=== PATIENT | male | born 1955 | race Hispanic/Latino ===

== ENCOUNTER 2019-01-28 06:46 | Day surgery (SDC) | payer OTHER ==
[2019-01-27 09:48] VITALS: BMI 38.9
--- NOTE | 2019-01-28 13:43 | OP ---
DATE OF PROCEDURE: 01/28/2019 PREPROCEDURE DIAGNOSES: Personal history of colon polyps. Family history of colon cancer in father. PROCEDURES: Colonoscopy and polypectomy. ANESTHESIA: TIVA. RECOMMENDATIONS: Repeat colonoscopy in 5 years. POSTPROCEDURE DIAGNOSES: Three small polyps, one in the ascending and two in the descending. DESCRIPTION OF PROCEDURE: The patient was informed of the risks, benefits, possible complications of endoscopy including perforation, reaction to medication, and aspiration. Informed consent was obtained. The patient was brought to the endoscopy suite, where he was sedated in gradual fashion. Once he was comfortable, rectal exam was performed. The endoscope was advanced through the anal canal through the colon to the cecum, which was identified by ileocecal valve and appendiceal orifice. The scope was then slowly removed. The prep was good. There was a 4 mm polyp, sessile in the ascending colon, removed by hot snare polypectomy and 2 diminutive polyps in the descending colon, removed by hot snare polypectomy. Retroflexed views in the rectum were normal. There were a few small diverticula. Conclusion of procedure, the scope was removed, the patient tolerated the procedure well. He did have some mild laryngospasm, which was treated by anesthesia, see their records for details, but had no significant desaturation. The patient tolerated the procedure well. There were no complications. Job ID: [id number]
== END 2019-01-28 11:15 | disposition home or self-care (01) ==
LOC: SDC 06:46
PROVIDERS: ATTEND Internal Medicine Gastroenterology
PROC: 0DBM8ZX Excision of Descending Colon, Via Natural or Artificial Opening Endoscopic, Diagnostic (ICD-10-PCS; principal; 2019-01-28)
PROC: 0DBK8ZX Excision of Ascending Colon, Via Natural or Artificial Opening Endoscopic, Diagnostic (ICD-10-PCS; principal; 2019-01-28)
DX: Z12.11 Encounter for screening for malignant neoplasm of colon (principal); K63.5 Polyp of colon; K57.30 Diverticulosis of large intestine without perforation or abscess without bleeding; J44.9 Chronic obstructive pulmonary disease, unspecified; I49.5 Sick sinus syndrome; Z86.010 Personal history of colon polyps; Z87.891 Personal history of nicotine dependence; Z79.82 Long term (current) use of aspirin; Z79.899 Other long term (current) drug therapy; Z80.0 Family history of malignant neoplasm of digestive organs; Z91.048 Other nonmedicinal substance allergy status; Z95.0 Presence of cardiac pacemaker
CPT/HCPCS: 88305

== ENCOUNTER 2019-07-26 02:00 | Observation (INO) | payer OTHER ==
[2019-07-26 02:39] LABS: #Basophils 0.1 thou/uL (0.0-0.2); #Eosinphils 0.2 thou/uL (0.0-0.7); #Lymphocytes 1.9 thou/uL (1.20-3.40); #Monocytes 0.5 thou/uL (0.11-0.59); #Neutrophils 5.9 thou/uL (1.40-6.50); %Eosinophils 2.5 % (0.0-10.0); %Monocytes 5.8 % (0.0-10.0); %Neutrophils 68.7 % (42.0-75.0); Hemoglobin 15.2 g/dL (14.0-18.0); Mean Corpuscular HGB CONC 33.8 g/dL (32.0-36.0); Mean Corpuscular Volume 91.7 fL (78.0-98.0); Mean Platelet Volume 6.8 fL (7.4-10.4); Platelet Count 202 thou/uL (130-400); RBC Distribution Width 11.7 % (11.5-14.5); Red Blood Cell (RBC) Count 4.89 mill/uL (4.70-6.10); White Blood Cell (WBC) Count 8.6 thou/uL (4.8-10.8)
[2019-07-26 03:00] LABS: ALT (SGPT) 20 U/L (8-55); AST (SGOT) 32 U/L (5-34); Albumin 4.3 g/dL (3.4-4.8); Alkaline Phosphatase 71 U/L (40-150); Anion Gap 11 mmol/L (10-20); BUN (Urea Nitrogen) 24 mg/dL (8.4-25.7); Bilirubin, Total 0.5 mg/dL (0.2-1.2); Calc. Creatinine Clearance 0 mL/min (70-130); Calcium 9.4 mg/dL (7.8-10.44); Carbon Dioxide 23 mmol/L (23-31); Chloride 107 mmol/L (98-107); Estimated GFR-MDRD 63; Globulin 2.9 g/dL (2.4-3.5); Glucose 96 mg/dL (80-115); Potassium 4.2 mmol/L (3.5-5.1); Protein, Total 7.2 g/dL (5.8-8.1); Sodium 137 mmol/L (136-145)
[2019-07-26 03:23] LABS: CKMB 6.3 ng/mL (0-6.6)
[2019-07-26] MEDS ORDERED: Aspirin 325 MG TAB ONE (05:40)
[2019-07-26 07:15] VITALS: BMI 36.8
--- NOTE | 2019-07-26 08:01 | RAD ---
EXAM: Portable chest PROVIDED CLINICAL HISTORY: Tachycardia COMPARISON: 01/29/2019 FINDINGS: Cardiac and mediastinal silhouette is unchanged in appearance. Left subclavian cardiac pacing device is redemonstrated. No focal consolidation, pleural fluid or pneumothorax evident. IMPRESSION: No evidence for an acute cardiopulmonary process.
[2019-07-26 11:30] LABS: Troponin I 0.021 ng/mL (< 0.028)
[2019-07-26] MEDS ORDERED: Acetaminophen 325 MG TAB PO PRN (12:10)
[2019-07-26] MEDS ORDERED: Ondansetron PF 4 MG/2 ML Vial IVP PRN (12:10)
[2019-07-26] MEDS ORDERED: Ondansetron ODT 4 MG TAB PO PRN (12:10)
--- NOTE | 2019-07-26 17:19 | HP ---
PRIMARY CARE PROVIDER: JOSEFINA Serra, in [place]. CHIEF COMPLAINT: Tachycardia. HISTORY OF PRESENT ILLNESS: Mr. Rojas is a 63-year-old man with past medical history of sick sinus syndrome, status post pacemaker, and COPD, who had presented to the ED late last night after he experienced a fast heart rate after he was outside working in the yard. He states that he wears [employer] that had picked up a heart rate of about 177 yesterday, the patient states that he had felt fine without any acute symptoms and felt better after drinking some water inside. He states that his credit associate is Dr. Mack. He had denied any fever, chills, any headache, blurred vision, dizziness, any chest pain, palpitations, shortness of breath, abdominal pain, nausea, or vomiting. Once he arrived to the ED, it was found that he was in normal sinus rhythm, and his blood pressure and other vital signs remained stable. He was given aspirin and transferred up to the telemetry floor for further monitoring. His pacemaker was also checked and was found to be working appropriately. He was found to go in episodes of SVT with rates in the 160s. However, pacemaker kicked in and slowed the heart rate down to a more stable level. Otherwise, the patient was asymptomatic and had no further symptoms. REVIEW OF SYSTEMS: All other systems reviewed and found to be negative unless mentioned in the HPI. PAST MEDICAL HISTORY: Sick sinus syndrome and COPD. PAST SURGICAL HISTORY: Pacemaker placement. PSYCHIATRIC HISTORY: None. SOCIAL HISTORY: The patient reports drinking socially roughly 1 to 2 times a month and denies any drug use or tobacco use. KNOWN ALLERGIES: None. CURRENT HOME MEDICATIONS: None. PHYSICAL EXAMINATION: VITAL SIGNS: Blood pressure 125/70, pulse 63, respirations 17, temperature 97.5 , and O2 saturation 99% on room air. GENERAL: The patient is awake, alert, and oriented x3. He is currently lying comfortably in bed and in no acute distress. His family is at bedside. HEENT: Atraumatic and normocephalic. Pupils are round and reactive to light. Extraocular muscles intact. Moist mucous membranes noted. NECK: Soft and supple. Trachea midline. CARDIOVASCULAR: Positive S1 and S2. Regular rate and rhythm. No murmur auscultated. RESPIRATORY: Clear to auscultation bilaterally. No wheezes, rales, or rhonchi. ABDOMEN: Soft, nontender. Bowel sounds present. EXTREMITIES: Moves all extremities equal. Pedal and radial pulses 2+ bilaterally. No edema noted. NEUROLOGIC: Cranial nerves 2 through 12 grossly intact. No focal deficits noted. Speech intact and normal. Gait not assessed. SKIN: Warm, dry, and intact. No rashes. No ulceration noted. PSYCHIATRIC: Good mood and affect. LABORATORY DATA: WBC 8.6, RBC 4.89, hemoglobin 15.2, and platelets 202. Sodium 137, potassium 4.2, anion gap 11, BUN 24, creatinine 1.17, estimated GFR 63, CK- MB 6.3. Troponin 0.034, 0.040, 0.030, and 0.021. DIAGNOSTIC IMAGING: Portable chest x-ray showed no evidence for an acute cardiopulmonary process. ASSESSMENT AND PLAN: 1. Tachycardia, the patient's pacemaker is found to be working appropriately. He will be monitored on telemetry floor for any further signs of tachycardia or any dysrhythmia. A consult was also placed for Cardiology Services for further evaluation. Indeterminate troponin. His cardiac enzymes were found to be indeterminate, but have now trended down to normal. He is currently asymptomatic at this time. 2. History of sick sinus syndrome, status post pacemaker. This appears to be working appropriately. 3. Deep venous thrombosis and gastrointestinal prophylaxis. 4. Code status, full code. 5. Surrogate decision maker is his , Dolores. DISPOSITION: Pending further workup and clinical findings, the patient will likely be discharged home tomorrow if he is stable. Job ID: [id number] [facility]
[2019-07-27 05:24] LABS: #Eosinphils 0.5 thou/uL (0.0-0.7); #Monocytes 0.6 thou/uL (0.11-0.59); #Neutrophils 3.8 thou/uL (1.40-6.50); %Basophils 0.4 % (0.0-1.0); %Eosinophils 6.9 % (0.0-10.0); %Lymphocytes 29.6 % (21.0-51.0); %Monocytes 8.4 % (0.0-10.0); %Neutrophils 54.7 % (42.0-75.0); Hemoglobin 14.6 g/dL (14.0-18.0); Mean Corpuscular HGB CONC 33.9 g/dL (32.0-36.0); Mean Corpuscular Hemoglobin 31.3 pg (27.0-31.0); Mean Corpuscular Volume 92.4 fL (78.0-98.0); Mean Platelet Volume 6.6 fL (7.4-10.4); Platelet Count 191 thou/uL (130-400); RBC Distribution Width 11.7 % (11.5-14.5); Red Blood Cell (RBC) Count 4.66 mill/uL (4.70-6.10); White Blood Cell (WBC) Count 6.9 thou/uL (4.8-10.8)
[2019-07-27 05:25] LABS: Anion Gap 8 mmol/L (10-20); BUN (Urea Nitrogen) 18 mg/dL (8.4-25.7); Calc. Creatinine Clearance 145 mL/min (70-130); Calcium 8.7 mg/dL (7.8-10.44); Carbon Dioxide 29 mmol/L (23-31); Chloride 106 mmol/L (98-107); Estimated GFR-MDRD 76; Glucose 85 mg/dL (80-115); Potassium 3.6 mmol/L (3.5-5.1); Sodium 139 mmol/L (136-145)
[2019-07-27 08:21] VITALS: BP 119/56; TEMP 97.3
[2019-07-27] MEDS ORDERED: Enoxaparin Sodium 40 MG/0.4 ML SYRINGE SC SCH (09:00)
[2019-07-27] MEDS ORDERED: Prevnar 13-Val Conj/PF 0.5 ML SYRINGE IM ONE (09:00)
[2019-07-27] MEDS ORDERED: Aspirin 81 mg Enteric Coated Tablet PO SCH (09:00)
--- NOTE | 2019-07-27 09:07 | CON ---
DATE OF CONSULTATION: 07/26/2019 INDICATION FOR CONSULTATION: A 63-year-old gentleman who was admitted with episodes of tachycardia. 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 He has been followed by Dr. Mack. He had been on metoprolol in the past, but wanted to stop taking this medication. He would be doing very well without the medicine and it was agreed, then he stopped the medication. He does not really want to take any medications and he was out yesterday working in the yard. He was doing some significant extreme labor, underwent heavy lifting and cutting the grass and moving logs. He then went back inside. He was doing quite well, but then when he went to bed, knows his heart rate seemed to be little bit fast. He took his heart rates , it is in the 100s. He presented to the emergency room, where actually his heart rate was increased up to 115 at times according to his monitor on his watch and then he was admitted to the hospital. His cardiac enzymes are also slightly increased, but they are indeterminate at 0.034, increased up to 0.04, and is now back down to 0.02. He denied any chest pain or shortness of breath. No nausea. No other symptoms associated with tachycardia. Most likely, the elevation of cardiac enzymes were due to the tachycardia. At this time, he remains very stable and he has had no further episodes. The interrogation of the pacemaker did show he had several high ventricular rates. He did have 1 episode of what appears to be SVT yesterday, but no other episodes of SVT were noted and otherwise he has been doing very well and is very stable with a pacemaker, which still has about 5 to 6 years left on the generator prior to elective replacement interval. Otherwise, the pacemaker function was normal. He has normal sensing and normal thresholds. He is pacing in the atrium about 84% of the time and has ventricular pacing less than 1% of the time. He denies any symptoms, and at this time, is stable. PAST MEDICAL HISTORY: Significant for sick-sinus syndrome and pacemaker insertion. MEDICATIONS: He is not on any medications. He is on no significant medications and no prescription medications. ALLERGIES: NONE. FAMILY HISTORY: Noncontributory. REVIEW OF SYSTEMS: A 12-point review of systems is unremarkable except as noted in history of present illness. PHYSICAL EXAMINATION: GENERAL: Reveals a very pleasant, well-developed, well-nourished gentleman, who is in no acute distress at this time. He is alert. He is oriented. VITAL SIGNS: Blood pressure 130/70, heart rate is in the 60s. He has atrial pacing with ventricular sensing. Respiratory rate is 20. He is afebrile. HEENT: Unremarkable. He has normal carotids. No bruits were noted. CHEST: Clear to auscultation without rales, rhonchi, or wheezing. CARDIOVASCULAR: Reveals a regular rhythm. There were no significant murmurs, heaves, thrills, bruits, or rubs. He has a well-healed surgical incision of the pacemaker site. Otherwise, there were no other significant abnormalities. ABDOMEN: Shows obesity with positive bowel sounds. No organomegaly or masses noted. Femoral pulses are present. EXTREMITIES: No clubbing, cyanosis, or edema. Pedal pulses are present. NEUROLOGIC: The patient is fully intact with normal strength, normal tone. SKIN: Warm and dry. LABORATORY DATA: Shows as above with a troponin I. Otherwise, laboratory data is unremarkable. His potassium was 4.2, creatinine 1.17. Hemoglobin 15.2 and WBC of 8.6. IMPRESSION: 1. Episode of supraventricular tachycardia yesterday in a patient, who has history of sick-sinus syndrome, who does not desire to take medications. I did suggest we could put him on a low dose of beta mira or diltiazem and he is not agreeable to being on either one of these medications. He does have an appointment to see Dr. Mack next month and I suggested that since he has had no further episodes here , he is relatively asymptomatic that he is most likely in good condition to be discharged to home and can follow up with Dr. Mack next month and can make further decisions about whether or not to be seen by the electro plater even, but this appear to be a short episode less than 20 minutes of SVT. 2. Obesity. He has been trying to diet. He does take a protein shake every day , but otherwise has been dieting and every other day, tries to do some fasting and I have advised him against doing this, but otherwise he seems to be doing quite well and had no other cardiac problems and appears otherwise to be healthy. At this time, I have no further recommendations for this patient. It is unlikely that he would need to undergo stress testing. This can also be done as an outpatient if Dr. Mack feels that this would be indicated. I would think that his cardiac enzymes, since they were only still indeterminate , have now trended back downwards, is due to his heavy exertion yesterday and with his tachycardia associated with SVT and during the exercise and working, it appears he has had just some sinus tachycardia. Job ID: [id number] [facility]
--- NOTE | 2019-07-28 02:11 | DIS ---
DATE OF ADMISSION: 07/26/2019 DATE OF DISCHARGE: 07/27/2019 DISCHARGE DIAGNOSES: 1. Supraventricular tachycardia. 2. History of sick sinus syndrome, status post pacemaker placement. 3. Obesity. HISTORY OF PRESENT ILLNESS: The patient is a 63-year-old male with a history of sick sinus syndrome for which he had a pacemaker placed. The patient was previously started on beta blockers in order to limit his tachycardic element of the sick sinus syndrome, and he did not tolerate it well as it was keeping his heart rate too low and he was feeling sluggish and not functional. Therefore, he had discontinued it. The patient was generally doing well. He was outside working and his smart watch told him that he was having tachycardia with a heart rate of 170s. He presented to the hospital where he was still a little tachycardic, but improved. His labs were notable for troponin of 0.034. The patient was entirely asymptomatic. HOSPITAL COURSE: The patient was placed on observation. He had serial cardiac isoenzymes. His troponins basically stayed flat or trended slightly downward. He would remain asymptomatic. He had no further tachycardia, his heart rate generally stayed around 60. He had his pacemaker interrogated and essentially it appears as though it had captured the tachycardic episode and paced him out of it, as it was programmed to do. He was seen by Cardiology, who talked to him about considering beta blockers or calcium channel blockers. However, the patient was not interested in pursuing those again at this time. With that, the patient was felt to be stable for discharge to home. PHYSICAL EXAMINATION: VITAL SIGNS: His temperature is 97.3, pulse 60, respirations 15, O2 saturation 98% on room air, BP 119/56. GENERAL: He is awake and alert. HEART: Regular rate and rhythm without murmurs, gallops, or rubs. LUNGS: Clear bilaterally. ABDOMEN: Soft, nontender, and nondistended. EXTREMITIES: No edema. DISPOSITION: Discharged home in stable condition. DISCHARGE INSTRUCTIONS: 1. He will continue with his usual home medications. 2. He will have no new prescriptions. 3. His activity is as tolerated. 4. He will stay on a heart healthy diet. FOLLOWUP: 1. He can follow up with Elaine Braun in [place]. 2. Dr. Mack in about 7 days. 3. He can return to the hospital should he feel the need to do so. Job ID: [id number]
== END 2019-07-27 11:00 | disposition home or self-care (01) ==
LOC: ERS 02:00 → 2SW 05:37
PROVIDERS: ADMIT Hospitalist; ATTEND Hospitalist
DX: I47.1 Supraventricular tachycardia (principal); I49.5 Sick sinus syndrome; J44.9 Chronic obstructive pulmonary disease, unspecified; E66.9 Obesity, unspecified; Z68.36 Body mass index [BMI] 36.0-36.9, adult; Z79.899 Other long term (current) drug therapy; Z91.048 Other nonmedicinal substance allergy status; Z95.0 Presence of cardiac pacemaker
CPT/HCPCS: 36415; 71045; 80048; 80053; 82553; 83880; 84484; 85025; 90471; 90670; 93005; G0009; G0378; J1650